=== PATIENT | female | born 1985 | race Two or more races ===

== ENCOUNTER 2024-11-12 15:21 | Emergency (ER) | payer MEDICAID, SELFPAY ==
[2024-11-12 15:38] VITALS: BP 119/82; PULSE 89; RESP 20; TEMP 36.6; O2SAT 99
--- NOTE | 2024-11-12 15:50 | EDNOTE_ITS ---
ED Ear RME/HPI General Chief complaint: Ear Stated complaint: SEVERE PAIN L) EAR, SEVERE MIXON Time Seen by Provider: 11/12/24 15:51 Source: patient Arrival date/time: 11/12/24 15:21 39-year-old female with no known medical history presents to the emergency room with a chief complaint of left ear pain and discharge x 4 days. Patient is also complaining of a headache x 2 days. Mode of arrival: ambulatory Limitations: no limitations Related Data Home Medications ?Medication ?Instructions ?Recorded ?Confirmed vits no.124-ferrous fum 1 tab PO QDAY 9 04/05/19 27 mg iron-folic acid 800 mcg tablet ( Vitamin) Previous Rx's ?Medication ?Instructions ?Recorded ibuprofen 800 mg tablet 800 mg PO TID PRN pain #30 t abs 06/15/23 amoxicillin 875 mg-potassium 1 tab PO BID 7 days #14 t abs 11/12/24 clavulanate 125 mg tablet hydrocodone 5 mg-acetaminophen 325 1 tab PO BID PRN pa in #10 tabs 11/12/24 mg tablet Allergies Allergy/AdvReac Type Severity Reaction Status Date / Time No Known Allergies Allergy Verified 11/12/24 15:27 Review of Systems Review of Systems Systems Reviewed: All systems reviewed, normal except as documented Constitutional Constitutional: Reports system reviewed and no additional complaints, except as documented, Denies fatigue, Denies fever(s), Denies headache(s) and Denies weakness Eyes Eyes: Reports system reviewed and no additional complaints, except as documented, Denies blurry vision and Denies change in vision ENT Ears, Nose, Mouth, and Throat: Reports system reviewed and no additional complaints, except as documented, Reports ear discharge, Reports otalgia, Denies headache(s), Denies nasal congestion, Denies throat swelling and Denies vertigo Cardiovascular Cardiovascular: Reports system reviewed and no additional complaints, except as documented, Denies chest pain, Denies dyspnea and Denies dyspnea on exertion Respiratory Respiratory: Reports system reviewed and no additional complaints, except as documented, Denies chest congestion, Denies cough, Denies dyspnea, Denies dyspnea on exertion and Denies wheezing Gastrointestinal Gastrointestinal: Reports system reviewed and no additional complaints, except as documented, Denies abdominal pain, Denies cramping, Denies nausea and Denies vomiting Genitourinary Genitourinary: Reports system reviewed and no additional complaints, except as documented Musculoskeletal Musculoskeletal: Reports system reviewed and no additional complaints, except as documented and Denies back pain Integumentary/Breasts Skin/Breast: Reports system reviewed and no additional complaints, except as documented and Denies wounds Neurologic Neurologic: Reports system reviewed and no additional complaints, except as documented, Denies confusion, Denies headache(s), Denies lack of coordination, Denies vertigo and Denies weakness Psychiatric Psychiatric: Reports system reviewed and no additional complaints, except as documented, Denies anxiety, Denies confusion, Denies depression, Denies paranoia, Denies suicidal ideation and Denies tactile hallucinations Endocrine Endocrine: Reports system reviewed and no additional complaints, except as documented and Denies fatigue Hematologic/Lymphatic Hematologic/Lymphatic: Reports system reviewed and no additional complaints, except as documented and Denies lymphadenopathy Allergic/Immunologic Allergic/Immunologic: Reports system reviewed and no additional complaints, except as documented, Denies throat swelling, Denies urticaria and Denies wheezing Past Medical History Past Medical History NEUROLOGIC: Negative Neurological Disorders CARDIAC: Negative Cardiac Disorders or Congestive Heart Failure RESPIRATORY: Negative Chronic Obstructive Pulmonary Disease (COPD) or Asthma GASTROINTESTINAL: Negative Gastrointestinal Disorders, Hepatitis or Colorectal Cancer GENITOURINARY: Negative Genitourinary Disorders, Renal Disease or Prostate Cancer REPRODUCTIVE: Positive Previous Pregnancies; Negative Breast Cancer or Testicular Cancer MUSCULOSKELETAL: Negative Musculoskeletal Disorders or Bone Cancer ENDOCRINE: Negative Endocrine Disorders, Diabetes Mellitus Type 1 or Diabetes Mellitus Type 2 HEMATOLOGIC: Negative Blood Disorders or Sickle Cell Disease PSYCHO/SOCIAL: Positive Anxiety and Depression OTHER HISTORY: Positive Chicken Pox; Negative Hospitalization, Autoimmune Disease, Down Syndrome, Developmental Delay, Shingles, Falls, Blood Transfusions, Blood Transfusion Reaction, Anesthesia Reactions, Organ Transplant, Chemotherapy, Radiation Therapy, Hyperbaric Therapy, MRSA, VRSA, Vancomycin-Resistant Enterococci, Human Immunodeficiency Virus (HIV), Measles, Mumps, Rubella (Singaporean Measles), Pertussis, Clostridium Difficile, Breast Cancer, Cervical Cancer, Colorectal Cancer, Lung Cancer, Ovarian Cancer, Prostate Cancer or Testicular Cancer Family History FAMILY HISTORY: Negative Family Psychiatric Problems, Family Respiratory Disorders, Family Cardiac Disorders, Family Gastrointestinal Problems, Family Cancer, Family Surgery or Family Anesthesia Reaction Surgical History SURGICAL: Negative Cardiac Surgery, Section or Organ Transplant Social History SMOKING STATUS: Never smoker SECOND HAND EXPOSURE: No ED Exam General Limitations: Present no limitations General appearance: Present alert and in no apparent distress Head Head exam: Present atraumatic Eye Eye exam: Present normal appearance, PERRL and EOMI ENT ENT exam: Present normal exam, normal oropharynx and mucous membranes moist Expanded ENT Exam External ear exam: Present external tenderness TM/Canal exam: Left TM: erythema, perforation, canal discharge and canal tenderness Mouth exam: Present normal external inspection Teeth exam: Present normal inspection Throat exam: Present normal inspection Neck Neck exam: Present normal inspection, full ROM and trachea midline Chest Chest inspection: Present normal inspection and symmetric chest wall rise Respiratory Respiratory exam: Present normal lung sounds bilaterally Cardiovascular Cardiovascular exam: Present regular rate, normal rhythm and normal heart sounds Abdominal Exam Abdominal exam: Present soft and normal bowel sounds Extremities Exam Extremities exam: Present normal inspection and full ROM Back Exam Back exam: Present normal inspection and full ROM Neurological Exam Neurological exam: Present alert, oriented X3 and CN II-XII intact Psychiatric Psychiatric exam: Present normal affect and normal mood Skin Skin exam: Present warm, dry, intact and normal color Course Quality Measures none Orders Category Date Time Status Ketorolac Inj [Toradol Inj] Med 11/12/24 15:45 Discontinued 30 mg IM X1 ONE Vital Signs Vital signs: Vital Signs Temperature 97.9 F 11/12/24 15:38 Pulse Rate 89 11/12/24 15:38 Respiratory Rate 20 11/12/24 15:38 Blood Pressure 119/82 11/12/24 15:38 Pulse Oximetry (%) 99 11/12/24 15:38 Oxygen Delivery Method Room Air 11/12/24 15:38 O2 saturation 99% within normal limits Ear MDM Narrative MDM Narrative:: 39-year-old female with no known medical history presents to the emergency room with a chief complaint of left ear pain and discharge x 4 days. Patient is also complaining of a headache x 2 days. Patient is hemodynamically stable and in no apparent distress. Patient is afebrile not tachycardic and not tachypneic. Physical examination shows left-sided ruptured tympanic membrane with external ear tenderness as well as drainage inside the ear canal. The patient was prescribed ciprofloxacin eardrops for her otitis externa. I prescribed the patient oral Augmentin instead. Patient was given pain medication and educated to follow-up with her primary care provider and have her signs and symptoms continue she will need a referral to an ENT specialist Patient was discharged and educated to follow-up with primary care provider in the next 24 to 48 hours and return to the emergency room for any evidence of worsening signs or symptoms Patient data External records reviewed:: [facility] previous records Clinical information provided by:: patient Social determinants that could affect healthcare access:: none Patient has the following chronic illnesses:: No chronic illness How is presenting disease/condition affected by chronic disease/condition?: no chronic disease Evaluation data The following diagnostics were reviewed and interpreted by me:: lab results and radiology exam(s) Lab and/or radiology exams considered but not ordered:: Labs and radiology exams considered in order Interpretation Summary: N/A Medications / Prescriptions Medications or Prescriptions considered but not ordered:: Medication given Medication administrations:: Medication Administration History Discontinued Medications Ketorolac Tromethamine (Ketorolac Inj 60 Mg/2 Ml Vial) 30 mg IM X1 ONE Stop: 11/12/24 15:46 Last Admin: 11/12/24 15:52 Dose: 30 mg Documented By: ADI Rx given Consultations Consultation(s) initiated? (list below): No Diagnosis Ear Differential Diagnosis: otitis externa, otitis media, foreign body in ear, ruptured TM and cerumen impaction Most likely diagnosis given after review of the tests above:: Ruptured TM Admission Indicated Admission indicated?: not indicated Admission Request Was there a request for admission?: No Disposition Plan Disposition Plan: Discharge Discharge Attestation Discharge Attestation: The patient and all family members were given an opportunity to ask questions and understood the discharge instructions. Discharge instructions specifically effects, indications for sooner follow up or return to the emergency department, and the expected course of current diagnosis. Patient condition: Stable Discharge Plan Plan Patient Disposition: HOME (Self Care) Disposition Comment: Stable Prescriptions/Referrals Prescriptions/Med Rec: New amoxicillin-pot clavulanate 875-125 mg tablet 1 tab PO BID 7 Days Qty: 14 0RF hydrocodone-acetaminophen 5-325 mg tablet 1 tab PO BID MDD 10mg PRN (Reason: pain) Qty: 10 0RF No Action Vitamin 27 mg iron- 800 mcg Tablet 1 tab PO QDAY ibuprofen 800 mg tablet 800 mg PO TID PRN (Reason: pain) Qty: 30 0RF Problem List Clinical Impression: Otitis media Patient/Caregiver Discharge Instructions Education Materials: ED Otitis Media Antibiotic ... Additional Instructions: Por favor, consulte con prather m?dico de cabecera en las pr?ximas 24 a 48 horas. Los antibi?ticos se env?an a prather farmacia; rec?jalos y t?melos seg?n las indicaciones. Si los s?ntomas persisten, consulte con prather m?dico de cabecera, ya que podr?a ser necesario derivarlo a un otorrinolaring?logo. Si observa cualquier signo de empeoramiento de los signos o s?ntomas, acuda a urgencias de inmediato. Print Language: Monegasque Stand Alone Forms: Janna Award Info., Patient Portal Info Letter PA/OPERATIONAL INTELLIGENCE OFFICER Supervising Physician PA/OPERATIONAL INTELLIGENCE OFFICER Supervising Physician: Dr. Tsai
[2024-11-12] MEDS: KETOROLAC INJ 60 MG/2 ML VIAL 30 MG IM (15:52)
== END 2024-11-12 16:31 | disposition home or self-care (01) ==
LOC: SERX 16:43
PROVIDERS: Emergency Provider Emergency Medicine; PCP Physician Assistant
DX: H66.92 Otitis media, unspecified, left ear (principal)
CPT/HCPCS: 96372; 99283; J1885

== ENCOUNTER 2025-02-01 14:55 | Emergency (ER) | payer MEDICAID, SELFPAY ==
[2025-02-01 14:57] VITALS: PULSE 90; RESP 18; O2SAT 99; BMI 26.8
[2025-02-01 15:00] VITALS: BP 112/75; PULSE 80; RESP 19; TEMP 36.7; O2SAT 98
--- NOTE | 2025-02-01 15:22 | EDNOTE_ITS ---
ED General RME/HPI General Chief complaint: Psychiatric Symptoms Stated complaint: ANXIETY, DEPRESSED THAT DAUGHTER IS AWAY,VOLUNTARY Arrival date/time: 02/01/25 14:55 RME / HPI RME / HPI narrative: DR. PARSONS MAIN ED EVALUATION: 39 year old female presents to the Emergency Department [facility] with complaint of anxiety attack with associated feeling of shortness of breath. Per EMS, her BP was 108/70's, HR was 140 at scene but last one was 75, and satting at 98% on room air. Initially EMS reported that the patient was feeling anxious because her 15 year old daughter went to a school trip due to having good grades to [employer] [facility] [employer] with her imaging science professor. However, after speaking with the patient we found out that the patient just had a lot going on including her wanting a divorce a week ago and her parents' problems. Per patient, her parents have told her that god punished them with having a daughter like her. She states that her is not a bad person but is just not happy with her anymore. Vero gallagher states that all she cares about now and all she has now are her kids so that is why she had an anxiety attack. PMHx: Denies any PMHx, surgeries, daily medications, or known allergies. Social Hx: No tobacco, alcohol, or substance use. Related Data Home Medications ?Medication ?Instructions ?Recorded ?Confirmed vits no.124-ferrous fum 1 tab PO QDAY 9 04/05/19 27 mg iron-folic acid 800 mcg tablet ( Vitamin) Previous Rx's ?Medication ?Instructions ?Recorded ibuprofen 800 mg tablet 800 mg PO TID PRN pain #30 t abs 06/15/23 hydrocodone 5 mg-acetaminophen 325 1 tab PO BID PRN pa in #10 tabs 11/12/24 mg tablet Allergies Allergy/AdvReac Type Severity Reaction Status Date / Time No Known Allergies Allergy Verified 11/12/24 15:27 Review of Systems Review of Systems Systems Reviewed: All systems reviewed, normal except as documented Narrative Review of Systems: Constitutional: DENIES: fevers; Eyes: DENIES: loss of vision; Head/Ear/Nose: DENIES: loss of hearing. Throat: DENIES: dysphagia. Cardiovascular: DENIES: chest pain, dyspnea, or syncope. Respiratory: DENIES: shortness of breath; Gastrointestinal: DENIES: rectal bleeding or melena. Genitourinary: DENIES: dysuria (painful or difficult urination); Musculoskeletal: DENIES: arthralgia (pain in a joint); Skin: DENIES: rash; Neurological: DENIES: loss of function or movement; Psychiatric: POSITIVES: anxiety attack (see HPI); DENIES: illicit drug use or abuse; Endocrinology: DENIES: weight change,; Hematologic/Lymphatic: DENIES: abnormal bruising. Allergic/Immunologic: DENIES: urticaria (hives). Past Medical History Past Medical History REPRODUCTIVE: Positive Previous Pregnancies PSYCHO/SOCIAL: Positive Anxiety and Depression OTHER HISTORY: Positive Chicken Pox Social History SMOKING STATUS: Never smoker SECOND HAND EXPOSURE: No SUBSTANCE USE: does not use ALCOHOL: Never ED Exam Narrative Physical exam: Physical Exam:? General:?? ? The patient is tearful and has poor eye contact but is cooperative. The vital signs were reviewed. ? ? The patient is non-toxic, in no apparent distress and appears healthy with a patent airway, no respiratory distress and has no apparent circulatory problems. Head & Scalp:?? ? Normocephalic, atraumatic. Face:?? ? Appears normal and is without lesions, deformity. Ears:??? Left external pinna appears normal. ? ? Right external pinna appears normal. Eyes:?? ? The sclera is anicteric.? No obvious photophobia. ? ? The Left and Right Orbit/Lid/Conjunctiva appears normal without swelling, discoloration or injectio n. Nose: ? ? The nose is without deformity, discharge or tenderness; Throat: ? ? Appears normal.? The mucous membranes are pink and moist without exudates, redness or mass seen.? The tongue appears normal. Neck: The neck is supple and no apparent mass or adenopathy. Chest: The chest wall is normal in size and symmetry and has no chest wall tenderness or crepitus. ? ? The patient displays normal ventilator effort without retractions, accessory muscle use and has adequate air movement bilaterally with no wheezes and no rales. ? Cardiovascular: Regular rate and rhythm; No murmurs, rubs, or gallops; Gastrointestinal: The abdomen appears normal.? No obvious hernias or mass. The abdomen is soft and benign, non-distended, with no pain, no guarding and no rebound tenderness.? Bowel sounds are present and normal sounding.? No CVA tenderness. Genitourinary: Back/Spine: Extremities/Musculoskeletal/lymphatic:? ? ? The bilateral upper and lower extremities are warm. There is no evidence of arterial? insufficiency. There is no evidence of venous insufficiency/edema. The patient spontaneously moves bilateral upper and lower extremities with no pain and no limitation of movement.? There is no apparent, injury or trauma. Skin:? The skin is warm, dry and intact.? No rashes. No petechia. No purpura. No abnormal bruising.? The color is appropriate with no cyanosis. Mental status/Psychiatric: Not psychotic. Mental status is appropriate for age. The patient has no apparent delusions, visual hallucinations, no apparent audible hallucinations. The patient has no apparent suicidal thoughts/ideation and no apparent homicidal thoughts/ideation. Neurological:? The patient is awake, alert, interactive, cordial, cooperative and is oriented to name and situation. The patient follows commands and answers historical question with no impairment.?? There is no visual disturbance apparent.? The pupils are equal and reactive bilaterally with normal eye movements and no diplopia The bilateral upper and lower extremities have normal strength, normal range of motion and normal functioning. The gait, station and balance appears? to be baseline with no acute change Course Course Course Narrative: 164: Mental health cleared the patient and offered services; patient has an appointment with [facility] tomorrow at 815 AM for anxiety and another appointment with mental health February 07 at 1 PM. Quality Measures none Orders Category Date Time Status Alcohol, Urine Stat Lab 02/01/25 15:48 Completed Drug Screen,Urine Stat Lab 02/01/25 15:48 Completed HCG Qualitative,Urine Stat Lab 02/01/25 15:48 Completed Vital Signs Vital signs: Vital Signs Temperature 98.0 F 02/01/25 15:00 Pulse Rate 80 02/01/25 15:00 Respiratory Rate 19 02/01/25 15:00 Blood Pressure 112/75 02/01/25 15:00 Pulse Oximetry (%) 98 02/01/25 15:00 Oxygen Delivery Method Room Air 02/01/25 15:00 Discharge Plan Plan Patient Disposition: HOME (Self Care) Patient condition on transfer: Stable Prescriptions/Referrals Prescriptions/Med Rec: No Action Vitamin 27 mg iron- 800 mcg Tablet 1 tab PO QDAY ibuprofen 800 mg tablet 800 mg PO TID PRN (Reason: pain) Qty: 30 0RF hydrocodone-acetaminophen 5-325 mg tablet 1 tab PO BID MDD 10mg PRN (Reason: pain) Qty: 10 0RF Problem List Clinical Impression: Depression, Anxiety Patient/Caregiver Discharge Instructions Education Materials: Journaling for Mental Health, Your Body's Response to Anxiety, Understanding Anxiety Disorders, ED Anxiety Reaction, ED Depression Additional Instructions: Please follow up with your appointment with [facility] tomorrow at 815 AM for anxiety and with mental health February 07 at 1 PM. Por favor, jason un seguimiento con prather william con [facility] ct?cayetano a las 8:15 a. m. por ansiedad y con luna mental el a la 1 p. m. Print Language: Japanese Stand Alone Forms: Janna Award Info., Patient Portal Info Letter MDM Narrative [facility] hospital course: I, Nicol Rodas, am scribing for and in the presence of Dr. Parsons. Patient comes in hyperventilating anxiety anxious but also talks about her depression as her is planning to divorce her and her daughter is gone to a [employer] in [place]. She has no medical problems she is not use any drugs or alcohol. And she is clinically medically cleared for psych evaluation. Social service came by saw her and they got her a follow-up tomorrow [facility] can address the anxiety and depression issues and hopefully get some counseling as she is struggling with the divorce issues. No medical workup was needed today. 1530: Patient is medically cleared Clinical Information Provided by patient and EMS Medical Records Reviewed EMS Meds/Rx Considered, not Ordered None Labs/Rad/Tests considered, not Ordered None Chronic Illness/Social Conditions Add or document further as needed: Denies any PMHx, surgeries, daily medications, or known allergies. Lab Interpretation Labs: see narrative above Medication Administration(s) none Diagnosis Differential diagnosis: anxiety, depression Most likely dx, and/or detailed dx discussion: Depression Anxiety Dispositon Disposition: Discharge Home
[2025-02-01 16:17] LABS: HCG Qualitative,Urine Negative
--- NOTE | 2025-02-01 16:37 | PC.CC ---
Patient is a 39 year-old female who presents to the hospital for anxiety and suicidal ideation. Per Dr. Parsons psych evaluation is warranted. ASWAriana and MOBILE SALES ASSISTANT Student, Rima made face to face contact with patient introduced selves, roles, and reason for visit. Patient provided consent for MOBILE SALES ASSISTANT Student to remain in the room during assessment. Patient presents as alert and oriented to self, location, and situation. ASW disclosed limits of confidentiality as well. Patient made appropriate eye contact with this contract writer. Patient?s mood appeared to be euthymic and remained calm throughout assessment; patient had good insight and judgement. Patient?s thought process was linear and organized. No signs of delusions, paranoid or V/h. Patient reports she has been going through a divorce from her , Patrick Loera . Per patient, she was home when she was home and began to think about a child she lost 7 years ago when she was 36 weeks and began to have passive suicidal ideations. Patient reports she did not have a plan or intention. Patient reports she called her because she was not feeling well and felt like she was having a panic attack due to being overwhelmed from the divorce. Patient reports she is not connected to outpatient mental health services. At the time of encounter the patient denied suicidal and homicidal ideations and visual and auditory hallucinations. Patient disclosed 9 years ago she had a suicide attempt by overdosing on medication. Patient reports she was not placed on a 5150-hold at that time and was discharged from the hospital. ASW explored with patient what she has to live for which she stated her 4 children ages 15, 13, 12, and 5 years-old. ASW asked patient if ASW could make contact with Patrick Loera for collateral information. Patient provided consent to make contact with him. ASW made telephone contact with Patrick as patient reported he was the one who made contact with 911. Patrick reports patient called him and reported she was having a panic attack from anxiety and could not breathe. He reports she was alone and this is why he made contact with 911. Patient scored low-risk on the [place]cl[place] Screening. Patient reports she is open to safety planning and is open to a referral to outpatient mental health services. Patrick presented himself to the hospital. ASW made face to face contact with patient and Patrick who reports patient never reported suicidal ideations to him and only reported she did not feel well and was having a panic attack from anxiety. Patrick reports he feels she is having difficulty as their daughter went on a school trip to [facility] and the patient is having difficulty with the separation. Upon clinical consultation with [facility], Yeimy Lubin patient does not meet criteria for 5150-hold and safety plan will be established with patient and Patrick. Safety plan established with patient and Patrick is that he will remain with patient for the next 72 hours. Patrick is to keep all medications and sharps locked and secured, there are no firearms in the home. An appointment was scheduled with her primary clinic [facility] on the [address] [place] [id number] for Tuesday, February 02, 2025 at 0815. An outpatient mental health referral was scheduled [facility] for February 07, 2025 at 1pm. Patient was provided community resource guide with crisis hotline number and other clinics.
[2025-02-01 17:05] LABS: Alcohol, Urine Negative (Negative); Amphetamine/Methamp Scrn,U Negative (Negative); Barbiturate Screen,Urine Negative (Negative); Benzodiazepines Screen,Urine Negative (Negative); Benzoylecgonine Screen, Ur Negative (Negative); Fentanyl Screen,Urine Negative (Negative); Opiate Screen,Urine Negative (Negative); THC Screen,Urine Negative (Negative)
== END 2025-02-01 18:24 | disposition home or self-care (01) ==
PROVIDERS: Emergency Provider Emergency Medicine
DX: F32.A Depression, unspecified (principal); F41.9 Anxiety disorder, unspecified
CPT/HCPCS: 80307; 80320; 81025; 96127; 99285; G0480